=== PATIENT | male | born 1990 | race Asian ===

== ENCOUNTER 2022-12-30 12:37 | Emergency (ER) | payer BC ==
[~2022-12-30] VITALS: Ht 180.3 cm; Wt 59.0 kg
[2022-12-30 12:40] VITALS: BP_SYST 120
--- NOTE | 2022-12-30 12:45 | NUR ---
Patient triaged and placed in waiting room. VSS and patient appears in no acute distress at this time. Accompanied by SELF, awaiting available bed, and MD notified of need for MSE.
--- NOTE | 2022-12-30 14:55 | NUR ---
ER DR. URBINA EXAMINING PT
[2022-12-30] MEDS ORDERED: KETOROLAC TROMETHAMINE 60 MG/2 ML VIAL IM ONE (15:00)
--- NOTE | 2022-12-30 15:00 | NUR ---
Patient to ER bed H1 to gown for evaluation. Side rails up.
--- NOTE | 2022-12-30 15:05 | NUR ---
PT CAME IN FROM HOME C/O R SIDED BACK PAIN STARTED TODAY AND NOW IS ON AND OFF. RIGHT MID BACK. DENIES ANY INJURY OR TRAUMA. PT IS AMBULATORY, AAOX4, VSS
--- NOTE | 2022-12-30 15:30 | NUR ---
PT STATES HIS LOWER BACK PAIN IS GONE AND HE DOES NOT WANT MEDICATION AT THIS TIME
[2022-12-30] MEDS ORDERED: IBUP-1969 PO (15:57)
[2022-12-30 16:16] VITALS: BP_SYST 120
--- NOTE | 2022-12-30 16:17 | NUR ---
Patient given written and verbal discharge instructions and verbalizes understanding. ER MD discussed with patient the results and treatment provided. Patient in stable condition. ID arm band removed. Rx of IBUPROFEN given. Patient educated on pain management and to follow up with PMD. Pain Scale 0/10. Opportunity for questions provided and answered. Medication side effect fact sheet provided.
== END 2022-12-30 16:17 | disposition home or self-care (01) ==
LOC: SED 12:37
DX: M54.6 Pain in thoracic spine (principal); Z79.899 Other long term (current) drug therapy
CPT/HCPCS: 99283; J1885